=== PATIENT | male | born 1945 | race Caucasian/White ===

== ENCOUNTER 2016-07-17 15:42 | Emergency (ER) | payer MEDICARE, BC ==
--- NOTE | 2016-07-17 16:27 | ER PHYSICIAN DOCUMENTATION ---
Physician Documentation [facility] Name:Roger Jacobs Age:70 yrs Sex:Male :1945 Arrival Date:07/17/2016 Time:15:42 Bed6 Private MD:Carleen Garnica ED, [place] Disposition: 07/17/16 16:10 Discharged to Home/Self Care. Impression: Hand Hematoma. - Condition is Good. - Discharge Instructions: HEMATOMA. - Prescriptions for Keflex 500 mg Oral - take 1 capsule by ORAL route every 12 hours for 7 days; 14 capsule. - Medical Reconciliation form form. - Follow up: Carleen Garnica MD; When: As needed; Reason: Recheck today's complaints, Continuance of care. - Problem is new. - Symptoms have improved. HPI: 07/17 16:04 This 70 yrs old Male presents to ER via Private Vehicle with complaints of sc Hand Swelling. 16:04 The patient or guardian reports injury, a puncture wound, knife. The complaints affect sc the left hand diffusely. Context: The problem was sustained at home. Onset: The symptom(s)/episode began/occurred just prior to arrival. Associated signs and symptoms: Pertinent positives: on asa and plavix and large hematoma now. Historical: - Allergies: No known drug Allergies; No known drug Allergies; - Home Meds: 1. aspirin Oral 2. Plavix Oral 3. Zyrtec Oral 4. Folic Acid Oral 5. Metoprolol Tartrate Oral 6. Crestor oral 7. Tribenzor oral 8. Viagra Oral 9. Bystolic oral 10. sertraline oral 11. multivitamin oral 12. Colcrys oral 13. pantoprazole oral 14. Hydrocodone-Acetaminophen 5-325 mg Oral 15. Ativan Oral 16. Zolpidem Tartrate Oral 17. Advair Diskus Inhl 18. Allopurinol Oral 19. Propecia oral 20. Synthroid Oral - PMHx: CAD; Hypertension; aortic aneurysm; bladder cancer; - PSHx: bladder; - Tetanus: < 10 years. - Ebola Screening: : No symptoms or risks identified at this time. . - Immunization history: Pneumococcal vaccine is up to date, Flu Vaccine < 1 year. - Social history: Smoking status: unknown if patient ever smoked tobacco. Patient uses alcohol on a daily basis. ROS: 16:05 Constitutional: Negative for fever, chills, and weight loss. sc Eyes: Negative for injury, pain, redness, and discharge. Neck: Negative for injury, pain, and swelling. Skin: Negative for injury, rash, and discoloration. 16:05 Neuro: Negative for headache, weakness, numbness, tingling, and seizure. sc 16:05 MS/extremity: Positive for injury or acute deformity. Exam: Constitutional: This is a well developed, well nourished patient who is awake, alert, and in no acute distress. Head/Face: Normocephalic, atraumatic. Eyes: Pupils equal round and reactive to light, extra-ocular motions intact. Lids and lashes normal. Conjunctiva and sclera are non-icteric and not injected. Cornea within normal limits. Periorbital areas with no swelling, redness, or edema. Skin: Warm, dry with normal turgor. Normal color with no rashes, no lesions, and no evidence of cellulitis. 16:05 Neuro: Awake and alert, GCS 15, oriented to person, place, time, and situation. sc Cranial nerves II-XII grossly intact. Motor strength 5/5 in all extremities. Sensory grossly intact. Cerebellar exam normal. Normal gait. 16:05 Musculoskeletal/extremity: Extremities: grossly normal except: puncture, swelling, ROM: no acute changes, Circulation is intact in all extremities. Sensation intact. 16:12 Skin: Exam negative for acute changes. mo Vital Signs: 16:00 BP 143 / 89; Pulse 73; Resp 16; Temp 98.5(O); Pulse Ox 90% on R/A; Weight 88.45 kg; nf Height 5 ft. 11 in. (180.34 cm); Pain 5/10; 16:00 Body Mass Index 27.20 (88.45 kg, 180.34 cm) nf MDM: 15:54 Patient medically screened. mo 16:06 Differential diagnosis: small pw and large hematoma 1 cm deep x 6 cm diameter to dorsum sc of hand, ring removed with soap and water and segun wrap for compression dressing. Data reviewed: vital signs, nurses notes, and as a result, I will discharge patient. 07/17 16:11 Order name: ORTHO: 2" Segun Wrap; Complete Time: 16:26 mo 07/17 16:11 Order name: ORTHO: Arm Sling; Complete Time: mo 07/17 16: Order name: Wound Care; Complete Time: mo Dispensed Medications: No medications were administered Signatures: Aranza Guzman RN RN Adná Davis MD MD mo
--- NOTE | 2016-07-17 16:27 | ER NURSING DOCUMENTATION ---
Nurse's Notes [facility] Name:Roger Jacobs Age:70 yrs Sex:Male :1945 Arrival Date:07/17/2016 Time:15:42 Bed6 Private MD:Carleen Garnica Diagnosis:Hand Hematoma Presentation: 07/17 15:47 Transition of care: patient was not received from another setting of care. Notified ED nf Physician of patient's arrival and CC Dr. Terry notified. 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 Triage Assessment: 15:59 General: Appears well nourished, well groomed, Behavior is pleasant. Pain: Complains of nf pain in back of left hand. Historical: - Allergies: No known drug Allergies; No known drug Allergies; - Home Meds: 1. aspirin Oral 2. Plavix Oral 3. Zyrtec Oral 4. Folic Acid Oral 5. Metoprolol Tartrate Oral 6. Crestor oral 7. Tribenzor oral 8. Viagra Oral 9. Bystolic oral 10. sertraline oral 11. multivitamin oral 12. Colcrys oral 13. pantoprazole oral 14. Hydrocodone-Acetaminophen 5-325 mg Oral 15. Ativan Oral 16. Zolpidem Tartrate Oral 17. Advair Diskus Inhl 18. Allopurinol Oral 19. Propecia oral 20. Synthroid Oral - PMHx: CAD; Hypertension; aortic aneurysm; bladder cancer; - PSHx: bladder; - Tetanus: < 10 years. - Ebola Screening: : No symptoms or risks identified at this time. . - Immunization history: Pneumococcal vaccine is up to date, Flu Vaccine < 1 year. - Social history: Smoking status: unknown if patient ever smoked tobacco. Patient uses alcohol on a daily basis. Screenin:01 Infectious Disease Risk None. Abuse screen: Denies threats or abuse. Nutritional nf screening: No deficits noted. Assessment: 16:01 See Triage Assessment done by same RN. nf Vital Signs: 16:00 BP 143 / 89; Pulse 73; Resp 16; Temp 98.5(O); Pulse Ox 90% on R/A; Weight 88.45 kg; nf Height 5 ft. 11 in. (180.34 cm); Pain 5/10; 16:00 Body Mass Index 27.20 (88.45 kg, 180.34 cm) ED Course: 15:45 Patient arrived in ED. arc 15:45 Carleen Garnica MD is Private Physician. arc 15:47 Aranza Guzman RN is Primary Nurse. nf 15:48 Triage completed. nf 15:54 Adán Terry MD is Attending Physician. ms 16:00 Arm band placed on Bed in low position Call Light in Reach Side rails up x1. Family nf accompanied patient. 16:01 Valuables Remains with patient Adult w/ patient. Door closed. Noise minimized. Lights nf dimmed. Moved to private room. Verbal reassurance given. Pillow given. 16:02 Removed ring from left. nf 16:08 Carleen Garnica MD is Referral Physician. ms 16:15 Segun wrap to left hand Sling applied to left arm. CMS intact distally after segun and nf sling application; patient instructed how to check CMS and how to adjust segun wrap and sling when needed. 16:15 Wound care to very minor, to the back of left hand near base of 2nd digit was cleaned nf with soap and water, dressed with band aid, Patient tolerated well. Administered Medications: No medications were administered Outcome: 16:10 Discharge ordered by . ms 16:25 Discharged to home ambulatory, with significant other. 16:25 Condition: stable 16:25 Discharge Assessment: Patient awake, alert and oriented x 3. No cognitive and/or functional deficits noted. Patient verbalized understanding of disposition instructions. 16:25 Discharge instructions given to patient, family, Instructed on discharge instructions, follow up and referral plans. medication usage, [facility] Demonstrated understanding of instructions, medications, Prescriptions given X 1, prescription for keflex; verbal instructions by Carmen to decrease aspirin dose for 2 days 16:26 Patient left the ED. nf Signatures: Aranza Guzman RN RN Adán Terry MD MD ms Kendra Terry, Reg Reg arc
== END 2016-07-17 16:26 | disposition home or self-care (01) ==
LOC: ER 15:42
DX: S61.432A Puncture wound without foreign body of left hand, initial encounter (principal); S60.222A Contusion of left hand, initial encounter; Z79.82 Long term (current) use of aspirin; Z79.02 Long term (current) use of antithrombotics/antiplatelets; W26.0XXA Contact with knife, initial encounter; Y92.019 Unspecified place in single-family (private) house as the place of occurrence of the external cause; I10 Essential (primary) hypertension; I25.10 Atherosclerotic heart disease of native coronary artery without angina pectoris; I71.9 Aortic aneurysm of unspecified site, without rupture; Z79.899 Other long term (current) drug therapy
CPT/HCPCS: 99282; 99283